=== PATIENT | male | born 1935 | race Caucasian/White ===

== ENCOUNTER 2019-01-25 13:54 | Inpatient (IN) ==
[2019-01-25] MEDS ORDERED: Ipratropium/Albuterol Neb 3 ML IH ONE (14:17)
[2019-01-25] MEDS ORDERED: predniSONE 20 MG TABLET PO ONE (14:17)
[2019-01-25] MEDS ORDERED: *HR* FentaNYL (PF) 100 MCG/2 ML VIAL IVP ONE (14:18)
[2019-01-25] MEDS ORDERED: 0.9 % Sodium Chloride 1,000 ML IVC ONE (14:18)
[2019-01-25 14:29] LABS: Hematocrit 25.6 % (37.5-50.1); Mean Corpuscular HGB Conc 35.2 g/dL (31.6-35.5); Mean Corpuscular Hemoglobin 29.6 pg (28.0-33.3); Mean Corpuscular Volume 84.2 fL (83.0-100.0); Mean Platelet Volume 8.2 fL (9.4-12.4); Platelet Count 545 K/mcL (140-400); Red Blood Count 3.04 M/mcL (4.19-5.50); White Blood Count 17.3 K/mcL (4.3-11.1)
[2019-01-25 14:55] LABS: BUN/Creatinine Ratio 24 (6-26); Blood Urea Nitrogen 25 mg/dL (8-23); Carbon Dioxide 20 mEq/L (23-29); Chloride 92 mEq/L (98-107); Glucose 130 mg/dL (70-105); Lipase 21 Units/L (11-82); Osmolality,Calculated 264 (280-300); Potassium 3.7 mEq/L (3.5-5.1); Sodium 124 mEq/L (136-145); Troponin I < 0.03 ng/mL (< 0.04); eGFR For African Americans > 60 (> 60); eGFR For Non-African Americans > 60 (> 60)
[2019-01-25 14:59] LABS: Monocytes # 0.7 K/mcL (0.0-1.3); Neutrophils # 15.6 K/mcL (1.6-8.9)
[2019-01-25 15:00] LABS: Hypochromasia Present (Not Present); Platelet Estimate Increased (Normal)
[2019-01-25 15:07] LABS: Bilirubin,Urine Negative (Negative); Blood,Urine Negative (Negative); Clarity,Urine Clear (Clear); Color,Urine Yellow (Yellow); Glucose,Urine (UA) Normal (Normal); Ketones,Urine Negative (Negative); Leukocyte Esterase,Urine Negative (Negative); Nitrite,Urine Negative (Negative); Protein,Urine 100 mg/dL (Neg-Trace); Specific Gravity,Urine 1.017 (1.010-1.025); Urobilinogen,Urine Normal (Normal)
[2019-01-25 15:16] LABS: Mucus,Urine Few (Few); Squamous Epithelial Cell,Urine Few per lpf (None-Few); WBC,Urine 0-3 per hpf (0-3)
[2019-01-25] MEDS ORDERED: Isovue-370 500 ML BOTTLE IVP ONE (15:19)
[2019-01-25] MEDS ORDERED: levoFLOXacin 750 MG/150 ML 750 MG/150 ML BAG IVPB ONE (15:20)
[2019-01-25] MEDS ORDERED: Naloxone 0.4 MG/ML INJ IVP PRN (18:02)
[2019-01-25] MEDS ORDERED: Ondansetron 4 MG/2 ML VIAL IVP PRN (18:02)
[2019-01-25] MEDS ORDERED: Ringers Solution, Lactated 1,000 ML IVC ONE (18:19)
[2019-01-25] MEDS ORDERED: Ringers Solution, Lactated 1,000 ML IVC SCH (18:30)
[2019-01-25] MEDS: Piperacillin/Tazobactam 3.375 GM in 0.9 % Sodium Chloride Mini Bag 100 ML IVPB SCH (20:33)
[2019-01-25] MEDS: Acetaminophen 325 MG TABLET PO PRN (21:05)
[2019-01-25] MEDS: Ipratropium/Albuterol Neb 3 ML IH SCH (21:48)
[2019-01-25] MEDS: *HR* OxyCODONE Immed Rel 5 MG TABLET PO PRN (23:25)
[2019-01-25] MEDS: *HR* Heparin 5,000 UNIT/ML VIAL SQ SCH (23:26)
[2019-01-26] MEDS: Piperacillin/Tazobactam 3.375 GM in 0.9 % Sodium Chloride Mini Bag 100 ML IVPB SCH ×4 (00:36→23:47)
[2019-01-26] MEDS ORDERED: *HR* Metoprolol 5 MG/5 ML VIAL IVP ONE ×2 (01:23→03:33)
[2019-01-26] MEDS: Ipratropium/Albuterol Neb 3 ML IH SCH ×4 (03:49→21:50)
[2019-01-26 05:43] LABS: Basophils % 0.1 %; Eosinophils % 0.1 %; Hematocrit 25.5 % (37.5-50.1); Immature Granulocytes % 0.8 % (0-4); Lymphocytes # 0.4 K/mcL (0.6-4.6); Lymphocytes % 2.5 %; Mean Corpuscular HGB Conc 35.3 g/dL (31.6-35.5); Mean Corpuscular Hemoglobin 29.1 pg (28.0-33.3); Mean Corpuscular Volume 82.5 fL (83.0-100.0); Mean Platelet Volume 8.2 fL (9.4-12.4); Monocytes # 0.8 K/mcL (0.0-1.3); Monocytes % 5.1 %; Neutrophils # 14.4 K/mcL (1.6-8.9); Platelet Count 568 K/mcL (140-400); Red Blood Count 3.09 M/mcL (4.19-5.50); Red Cell Distribution Width 13.1 % (11.5-14.5); Segmented Neutrophils % 91.4 %; White Blood Count 15.7 K/mcL (4.3-11.1)
[2019-01-26 05:51] LABS: INR 1.4; Prothrombin Time 15.7 Seconds (9.4-12.1)
[2019-01-26 06:03] LABS: % Iron Saturation 7 % (20-55); Alanine Aminotransferase 9 Units/L (7-52); Albumin 3.2 g/dL (3.5-5.7); Albumin/Globulin Ratio 0.9 (1.1-2.2); Alkaline Phosphatase 79 Units/L (34-104); Aspartate Amino Transferase 10 Units/L (13-39); BUN/Creatinine Ratio 21 (6-26); Bilirubin,Direct 0.1 mg/dL (0.0-0.2); Bilirubin,Indirect 0.2 mg/dL (0.0-1.2); Bilirubin,Total 0.3 mg/dL (0.3-1.0); Blood Urea Nitrogen 18 mg/dL (8-23); Calcium 8.8 mg/dL (8.6-10.3); Carbon Dioxide 19 mEq/L (23-29); Chloride 92 mEq/L (98-107); Globulin 3.4 g/dL (2.4-3.5); Glucose 168 mg/dL (70-105); Iron 13 mcg/dL (65-175); Magnesium 1.3 mg/dL (1.6-2.6); Osmolality,Calculated 262 (280-300); Potassium 3.8 mEq/L (3.5-5.1); Sodium 123 mEq/L (136-145); Total Protein 6.6 g/dL (6.4-8.9); Transferrin 124 mg/dL (203-362); eGFR For African Americans > 60 (> 60); eGFR For Non-African Americans > 60 (> 60)
[2019-01-26 06:18] LABS: Ferritin 827 ng/mL (20-250)
[2019-01-26 06:24] LABS: Folate 12.8 ng/mL (3.0-16.0)
[2019-01-26] MEDS ORDERED: Lidocaine -MPF 2% 2 ML VIAL ONE (07:42)
[2019-01-26] MEDS: *HR* Heparin 5,000 UNIT/ML VIAL SQ SCH ×3 (07:48→23:47)
[2019-01-26] MEDS: Aspirin Enteric Coated 81 MG Tablet PO SCH (07:48)
[2019-01-26] MEDS: Cholecalciferol (D-3) 1,000 UNIT (25MCG) TABLET PO SCH (07:48)
[2019-01-26] MEDS ORDERED: Ipratropium/Albuterol Neb 3 ML ONE (07:56)
[2019-01-26] MEDS ORDERED: *HR* Propofol 200 MG/20 ML VIAL IVP ONE (07:57)
[2019-01-26] MEDS ORDERED: Gadolinium Contrast Agent (WT Based) IV PRN (08:06)
[2019-01-26] MEDS ORDERED: Lidocaine Viscous Oral Soln 15 ML SOLUTION ONE (09:00)
[2019-01-26] MEDS ORDERED: Nicotine 21 MG PATCH.TD24 TD SCH (09:00)
[2019-01-26] MEDS: Acetaminophen 325 MG TABLET PO PRN (14:01)
[2019-01-26] MEDS: Nicotine 14 MG PATCH.TD24 TD SCH (14:03)
[2019-01-26 16:37] LABS: Total Protein,Pleural Fluid 3.8 g/dL
[2019-01-26] MEDS: MethylPREDNISolone 40 MG/ML VIAL IVP SCH ×2 (17:20→23:47)
[2019-01-27] MEDS: Ipratropium/Albuterol Neb 3 ML IH SCH ×4 (03:37→21:46)
[2019-01-27 04:29] LABS: Basophils % 0.1 %; Eosinophils % 0.1 %; Hematocrit 26.3 % (37.5-50.1); Immature Granulocytes % 1.3 % (0-4); Lymphocytes # 0.3 K/mcL (0.6-4.6); Lymphocytes % 2.2 %; Mean Corpuscular HGB Conc 34.2 g/dL (31.6-35.5); Mean Corpuscular Hemoglobin 28.8 pg (28.0-33.3); Mean Corpuscular Volume 84.3 fL (83.0-100.0); Mean Platelet Volume 8.4 fL (9.4-12.4); Monocytes # 0.2 K/mcL (0.0-1.3); Monocytes % 1.5 %; Neutrophils # 13.5 K/mcL (1.6-8.9); Platelet Count 579 K/mcL (140-400); Red Blood Count 3.12 M/mcL (4.19-5.50); Red Cell Distribution Width 13.1 % (11.5-14.5); Segmented Neutrophils % 94.8 %; White Blood Count 14.2 K/mcL (4.3-11.1)
[2019-01-27] MEDS ORDERED: *HR* Metoprolol 5 MG/5 ML VIAL IVP ONE (04:33)
[2019-01-27 04:47] LABS: BUN/Creatinine Ratio 20 (6-26); Blood Urea Nitrogen 18 mg/dL (8-23); Calcium 9.1 mg/dL (8.6-10.3); Carbon Dioxide 20 mEq/L (23-29); Chloride 92 mEq/L (98-107); Glucose 175 mg/dL (70-105); Magnesium 1.5 mg/dL (1.6-2.6); Osmolality,Calculated 262 (280-300); Potassium 3.8 mEq/L (3.5-5.1); Sodium 123 mEq/L (136-145); eGFR For African Americans > 60 (> 60); eGFR For Non-African Americans > 60 (> 60)
[2019-01-27] MEDS: Piperacillin/Tazobactam 3.375 GM in 0.9 % Sodium Chloride Mini Bag 100 ML IVPB SCH ×3 (09:03→23:31)
[2019-01-27] MEDS: Cholecalciferol (D-3) 1,000 UNIT (25MCG) TABLET PO SCH (09:04)
[2019-01-27] MEDS: *HR* Heparin 5,000 UNIT/ML VIAL SQ SCH ×3 (09:04→23:31)
[2019-01-27] MEDS: Nicotine 14 MG PATCH.TD24 TD SCH (09:05)
[2019-01-27] MEDS: MethylPREDNISolone 40 MG/ML VIAL IVP SCH ×3 (09:06→23:31)
[2019-01-27] MEDS: Aspirin Enteric Coated 81 MG Tablet PO SCH (09:07)
[2019-01-27] MEDS: levoFLOXacin 750 MG/150 ML 750 MG/150 ML BAG IVPB SCH (15:56)
[2019-01-27] MEDS: *HR* OxyCODONE Immed Rel 5 MG TABLET PO PRN (21:12)
[2019-01-27] MEDS: Acetaminophen 325 MG TABLET PO PRN (23:40)
[2019-01-28] MEDS ORDERED: Melatonin 3 MG TABLET PO ONE (02:23)
[2019-01-28] MEDS: Ipratropium/Albuterol Neb 3 ML IH SCH ×4 (03:36→22:16)
[2019-01-28 06:35] LABS: Hematocrit 23.2 % (37.5-50.1); Hemoglobin 7.7 g/dL (12.9-16.9); Immature Granulocytes % 1.7 % (0-4); Lymphocytes # 0.6 K/mcL (0.6-4.6); Lymphocytes % 4.4 %; Mean Corpuscular HGB Conc 33.2 g/dL (31.6-35.5); Mean Corpuscular Hemoglobin 28.8 pg (28.0-33.3); Mean Corpuscular Volume 86.9 fL (83.0-100.0); Mean Platelet Volume 8.6 fL (9.4-12.4); Monocytes # 0.7 K/mcL (0.0-1.3); Monocytes % 5.2 %; Neutrophils # 11.7 K/mcL (1.6-8.9); Platelet Count 460 K/mcL (140-400); Red Blood Count 2.67 M/mcL (4.19-5.50); Red Cell Distribution Width 13.2 % (11.5-14.5); Segmented Neutrophils % 88.7 %; White Blood Count 13.2 K/mcL (4.3-11.1)
[2019-01-28 06:54] LABS: BUN/Creatinine Ratio 29 (6-26); Blood Urea Nitrogen 35 mg/dL (8-23); Calcium 8.4 mg/dL (8.6-10.3); Carbon Dioxide 21 mEq/L (23-29); Chloride 92 mEq/L (98-107); Glucose 179 mg/dL (70-105); Magnesium 1.9 mg/dL (1.6-2.6); Osmolality,Calculated 268 (280-300); Potassium 3.9 mEq/L (3.5-5.1); Sodium 123 mEq/L (136-145); eGFR For African Americans > 60 (> 60); eGFR For Non-African Americans 57 (> 60)
[2019-01-28] MEDS: Piperacillin/Tazobactam 3.375 GM in 0.9 % Sodium Chloride Mini Bag 100 ML IVPB SCH (08:24)
[2019-01-28] MEDS: MethylPREDNISolone 40 MG/ML VIAL IVP SCH ×3 (08:25→23:40)
[2019-01-28] MEDS: *HR* Heparin 5,000 UNIT/ML VIAL SQ SCH ×3 (08:25→23:39)
[2019-01-28] MEDS: Cholecalciferol (D-3) 1,000 UNIT (25MCG) TABLET PO SCH (08:25)
[2019-01-28] MEDS: Nicotine 14 MG PATCH.TD24 TD SCH (08:26)
[2019-01-28] MEDS: Aspirin Enteric Coated 81 MG Tablet PO SCH (08:26)
[2019-01-28] MEDS ORDERED: Aminoglycoside Consult 1 EACH MC ONE (13:21)
[2019-01-29] MEDS: Ipratropium/Albuterol Neb 3 ML IH SCH ×4 (03:28→22:10)
[2019-01-29 06:23] LABS: Basophils % 0.1 %; Hemoglobin 8.7 g/dL (12.9-16.9); Immature Granulocytes % 3.1 % (0-4); Lymphocytes # 0.7 K/mcL (0.6-4.6); Lymphocytes % 4.9 %; Mean Corpuscular HGB Conc 33.5 g/dL (31.6-35.5); Mean Corpuscular Hemoglobin 28.9 pg (28.0-33.3); Mean Corpuscular Volume 86.4 fL (83.0-100.0); Mean Platelet Volume 8.3 fL (9.4-12.4); Monocytes # 0.7 K/mcL (0.0-1.3); Monocytes % 4.6 %; Neutrophils # 13.1 K/mcL (1.6-8.9); Platelet Count 520 K/mcL (140-400); Red Blood Count 3.01 M/mcL (4.19-5.50); Red Cell Distribution Width 13.2 % (11.5-14.5); Segmented Neutrophils % 87.3 %
[2019-01-29 07:31] LABS: BUN/Creatinine Ratio 38 (6-26); Blood Urea Nitrogen 37 mg/dL (8-23); Calcium 8.6 mg/dL (8.6-10.3); Carbon Dioxide 21 mEq/L (23-29); Chloride 95 mEq/L (98-107); Potassium 4.1 mEq/L (3.5-5.1); Sodium 125 mEq/L (136-145); eGFR For African Americans > 60 (> 60); eGFR For Non-African Americans > 60 (> 60)
[2019-01-29 07:48] LABS: Glucose 159 mg/dL (70-105); Osmolality,Calculated 272 (280-300)
[2019-01-29] MEDS: *HR* Heparin 5,000 UNIT/ML VIAL SQ SCH ×3 (07:51→23:26)
[2019-01-29] MEDS: MethylPREDNISolone 40 MG/ML VIAL IVP SCH ×3 (07:56→23:26)
[2019-01-29] MEDS: Aspirin Enteric Coated 81 MG Tablet PO SCH (08:05)
[2019-01-29] MEDS: Cholecalciferol (D-3) 1,000 UNIT (25MCG) TABLET PO SCH (08:05)
[2019-01-29] MEDS: Nicotine 14 MG PATCH.TD24 TD SCH (09:27)
[2019-01-29] MEDS: levoFLOXacin 750 MG/150 ML 750 MG/150 ML BAG IVPB SCH (15:43)
[2019-01-29 19:39] LABS: Influenza A PCR Body Fluid NOT DETECTED; Influenza B PCR Body Fluid NOT DETECTED; RVP Body Fluid Source BAL
[2019-01-29] MEDS: *HR* OxyCODONE Immed Rel 5 MG TABLET PO PRN (21:38)
[2019-01-29] MEDS ORDERED: Melatonin 3 MG TABLET PO PRN (23:56)
[2019-01-30 01:20] LABS: Hematocrit 22.4 % (37.5-50.1); Hemoglobin 7.6 g/dL (12.9-16.9); Mean Corpuscular HGB Conc 33.9 g/dL (31.6-35.5); Mean Corpuscular Hemoglobin 29.5 pg (28.0-33.3); Mean Corpuscular Volume 86.8 fL (83.0-100.0); Mean Platelet Volume 8.6 fL (9.4-12.4); Platelet Count 463 K/mcL (140-400); Red Blood Count 2.58 M/mcL (4.19-5.50); Red Cell Distribution Width 13.2 % (11.5-14.5); White Blood Count 14.3 K/mcL (4.3-11.1)
[2019-01-30 01:22] LABS: BUN/Creatinine Ratio 38 (6-26); Blood Urea Nitrogen 39 mg/dL (8-23); Carbon Dioxide 23 mEq/L (23-29); Chloride 96 mEq/L (98-107); Glucose 180 mg/dL (70-105); Osmolality,Calculated 272 (280-300); Potassium 4.2 mEq/L (3.5-5.1); Sodium 124 mEq/L (136-145); eGFR For African Americans > 60 (> 60); eGFR For Non-African Americans > 60 (> 60)
[2019-01-30 03:19] LABS: Lymphocytes # 1.4 K/mcL (0.6-4.6); Monocytes # 0.6 K/mcL (0.0-1.3)
[2019-01-30] MEDS: Acetaminophen 325 MG TABLET PO PRN (04:05)
[2019-01-30] MEDS: Ipratropium/Albuterol Neb 3 ML IH SCH ×2 (04:23→10:23)
[2019-01-30 06:58] VITALS: BP 142/70
[2019-01-30] MEDS: *HR* Heparin 5,000 UNIT/ML VIAL SQ SCH (07:40)
[2019-01-30] MEDS: MethylPREDNISolone 40 MG/ML VIAL IVP SCH (07:41)
[2019-01-30] MEDS: Aspirin Enteric Coated 81 MG Tablet PO SCH (07:41)
[2019-01-30] MEDS: Cholecalciferol (D-3) 1,000 UNIT (25MCG) TABLET PO SCH (07:41)
[2019-01-30] MEDS: Nicotine 14 MG PATCH.TD24 TD SCH (07:47)
[2019-01-30] MEDS: *HR* OxyCODONE Immed Rel 5 MG TABLET PO PRN (07:53)
[2019-01-30 10:36] LABS: RSV PCR Body Fluid NOT DETECTED
[2019-01-30] MEDS ORDERED: FLU Vac QV 19-20 (6Month+)/PF 0.5 ML SYRINGE IM ONE (12:24)
[2019-01-30] MEDS ORDERED: levoFLOXacin 750 MG TABLET PO SCH (16:00)
== END 2019-01-30 13:22 | disposition home health service (06) | DRG 871 ==
LOC: SUATTDRO → 3ANU 13:54 → EMEROOARM 13:54 → OBSVTOIN 17:33 → SUATTDRO 17:33 → 3ANU 19:30
PROVIDERS: ADMIT Pharmacist; ATTEND Internal Medicine